=== PATIENT | female | born 1985 | race Caucasian/White ===

== ENCOUNTER 2024-06-15 17:22 | Emergency (ER) | payer OTHER ==
[2024-06-15 17:31] VITALS: BP 166/115; PULSE 73; RESP 19; TEMP 97.4; BMI 27.3
[2024-06-15 20:38] LABS: PH,URINE 6.5 (5.0-8.0); URINE APPEARANCE CLEAR; URINE BILIRUBIN NEGATIVE (NEGATIVE); URINE COLOR YELLOW; URINE GLUCOSE (UA) NEGATIVE (NEGATIVE); URINE KETONE TRACE (NEGATIVE); URINE LEUK ESTERASE NEGATIVE (NEGATIVE); URINE NITRITE NEGATIVE (NEGATIVE); URINE PROTEIN NEGATIVE (NEGATIVE)
[2024-06-15 20:42] LABS: POTASSIUM 3.6 mmol/L (3.5-5.1)
[2024-06-15 20:44] LABS: CALCIUM 8.6 mg/dL (8.5-10.1)
[2024-06-15 20:45] LABS: ALBUMIN 3.8 g/dl (3.4-5.0); BLOOD UREA NITROGEN 12.5 mg/dL (7-18)
[2024-06-15 20:48] LABS: CREATININE 0.8 mg/dL (0.55-1.3)
[2024-06-15 20:49] LABS: BILIRUBIN,TOTAL 0.8 mg/dL (0.2-1); TOT PROT 7.2 g/dl (6.4-8.2)
== END 2024-06-15 21:38 | disposition home or self-care (01) ==
LOC: JER 17:22
DX: I10 Essential (primary) hypertension (principal); R20.0 Anesthesia of skin
CPT/HCPCS: 36415; 80053; 81003; 99283-25

== ENCOUNTER 2024-09-27 09:05 | Emergency (ER) | payer OTHER ==
[2024-09-27 09:27] VITALS: BP 148/74; PULSE 84; RESP 18; TEMP 97.7; BMI 27.3
== END 2024-09-27 18:09 | disposition home or self-care (01) ==
LOC: JERFT 09:05
DX: R22.32 Localized swelling, mass and lump, left upper limb (principal); M25.512 Pain in left shoulder
CPT/HCPCS: 76882-TC-RT-FY; 93005; 93010; 99284-25